=== PATIENT | female | born 1985 | race Two or more races ===

== ENCOUNTER 2024-02-24 11:12 | Inpatient (IN) | payer OTHER ==
[~2024-02-24] VITALS: Ht 167.6 cm; Wt 100.0 kg
[2024-02-24] MEDS ORDERED: ATEN-72 PO (11:52)
[2024-02-24 12:43] LABS: BASOPHILS % (AUTO) 0.5 % (0.0-2.0); EOSINOPHILS % (AUTO) 2.1 % (1.0-6.0); HEMOGLOBIN 13.3 g/dL (12.0-16.0); LYMPHOCYTES # (AUTO) 2.2 K/uL (1.0-4.8); LYMPHOCYTES % (AUTO) 21.1 % (22.0-44.0); MEAN CORPUSCULAR HEMOGLOBIN 29.3 pg (26.0-34.0); MEAN CORPUSCULAR HGB CONC 33.3 G/dL (31.0-37.0); MEAN CORPUSCULAR VOLUME 88 fL (80-100); MONOCYTES # (AUTO) 0.7 K/uL (0.1-1.0); MONOCYTES % (AUTO) 6.8 % (2.0-9.0); NEUTROPHILS # (AUTO) 7.2 K/uL (1.8-7.7); NEUTROPHILS % (AUTO) 69.5 % (40.0-70.0); PLATELET COUNT (AUTO) 315 K/uL (150-450); RED BLOOD CELL COUNT(AUTO) 4.54 MIL/uL (4.00-5.20); WHITE BLOOD COUNT (AUTO) 10.4 K/uL (4.5-11.0)
[2024-02-24 12:49] LABS: ANION GAP 9 mmol/L (8-16); CALCIUM, TOTAL 8.8 mg/dL (8.8-10.5); CARBON DIOXIDE 27 mmol/L (22-29); CHLORIDE 104 mmol/L (98-107); CREATININE 0.84 mg/dL (0.60-1.30); GLOMERULAR FILTR. RATE CALC > 60 mL/min (>60); GLUCOSE,RANDOM 91 mg/dL (70-110); POTASSIUM 4.1 mmol/L (3.5-5.1); SODIUM SERUM 140 mmol/L (136-145); UREA NITROGEN, BLOOD 20 mg/dL (7-18)
[2024-02-24 12:55] LABS: ALANINE AMINOTRANSFERASE 30 U/L (12-78); ALBUMIN 3.3 g/dL (3.4-5.0); ALKALINE PHOSPHATASE 69 U/L (46-116); ASPARTATE AMINOTRANSFERASE 17 U/L (15-37); BILIRUBIN,TOTAL 0.4 mg/dL (0.1-1.0); TOTAL PROTEIN, SERUM 7.8 g/dL (6.4-8.2)
[2024-02-24 13:56] LABS: COVID AG,FIA SOURCE NASAL SWAB
[2024-02-24 13:59] LABS: APPEARANCE,URINE HAZY (CLEAR); BILIRUBIN,URINE NEGATIVE (NEGATIVE); COLOR,URINE YELLOW (YELLOW); GLUCOSE, URINE (UA) NEGATIVE (NEGATIVE); KETONES,URINE NEGATIVE (NEGATIVE); LEUKOCYTE ESTERASE ,URINE TRACE (NEGATIVE); NITRATE,URINE NEGATIVE (NEGATIVE); OCCULT BLOOD,URINE NEGATIVE (NEGATIVE); PH,URINE 5.5 (5.0-8.0); PROTEIN,URINE 30-70 mg/dL (NEGATIVE); SPECIFIC GRAVITIY, URINE 1.031 (1.003-1.030); UROBILINOGEN,URINE <=1.0 mg/dL (<=1.0)
[2024-02-24 14:11] LABS: BACTERIA,URINE Few /HPF (None Seen); RBC,URINE None Seen /HPF (0-2); SQUAMOUS EPITHELIAL CELL,UR Many /LPF (None Seen)
[2024-02-24 14:19] LABS: SARS-COV2 (COVID) ANTIGEN,FIA Negative (Negative)
[2024-02-24] MEDS ORDERED: MAGNESIUM HYDROXIDE SUSPENSION 30 ML UDCUP PO PRN (14:45)
[2024-02-24] MEDS ORDERED: ONDANSETRON HCL 4 MG/2 ML VIAL IVP PRN (14:45)
[2024-02-24 16:03] VITALS: BP 103/63; PULSE 63; RESP 20; TEMP 98.5
[2024-02-24 19:52] VITALS: BP 111/58; PULSE 74; RESP 19; TEMP 97.6
[2024-02-24] MEDS: ACETAMINOPHEN 325 MG TABLET PO PRN (21:16)
[2024-02-25 00:25] VITALS: BP 112/76; PULSE 61; RESP 20; TEMP 98
[2024-02-25 04:50] VITALS: BP 123/82; PULSE 65; RESP 20; TEMP 97.9
[2024-02-25 08:06] LABS: HIV 1-2 SCREEN 4TH GEN W/RFLX Non Reactive (Non Reactive)
[2024-02-25 08:58] VITALS: BP 125/73; PULSE 74; RESP 18; TEMP 97.6
[2024-02-25] MEDS: FAMOTIDINE 20 MG TABLET PO SCH (08:58)
[2024-02-25 20:19] VITALS: BP 111/64; PULSE 69; RESP 18; TEMP 98.2
[2024-02-25 23:56] VITALS: BP 135/89; PULSE 75; RESP 19; TEMP 97.6
[2024-02-26 03:52] VITALS: BP 121/88; PULSE 73; RESP 19; TEMP 97.7
[2024-02-26 07:52] VITALS: BP 126/70; PULSE 76; RESP 18; TEMP 98.1
[2024-02-26 13:53] LABS: MTB PCR w/Rif. Resistance-SPUT NOT DETECTED (Not Detectd)
[2024-02-26 13:53] LABS: MTB PCR w/Rif. Resistance-SPUT NOT DETECTED (Not Detectd)
[2024-02-26 16:00] VITALS: BP 117/86; PULSE 68; RESP 20; TEMP 97.5
[2024-02-26 20:35] VITALS: BP 141/99; PULSE 68; RESP 20; TEMP 98
[2024-02-27] VITALS (9 sets, daily range): BP systolic 116–145; BP diastolic 66–93; PULSE 64–84; RESP 18–20; TEMP 97.4–98.3
[2024-02-28 04:59] VITALS: BP 129/72; PULSE 72; RESP 18; TEMP 97.7
[2024-02-28 08:40] VITALS: BP 122/56; PULSE 70; RESP 19; TEMP 98
[2024-02-28 10:06] LABS: QUANTIFERON+,Mitogen Value >10.00 IU/mL; QUANTIFERON+,TB2 Antigen Value 0.01 IU/mL; QUANTIFERON, TB GOLD PLUS Negative (Negative)
[2024-02-28 13:07] LABS: QUANTIFERON+,Mitogen Value >10.00 IU/mL; QUANTIFERON+,TB1 Antigen Value 0.01 IU/mL; QUANTIFERON+,TB2 Antigen Value 0.01 IU/mL; QUANTIFERON, TB GOLD PLUS Negative (Negative)
[2024-02-28] MEDS ORDERED: ACET-2247 PO (16:03)
[2024-02-28 20:00] VITALS: BP 124/68; PULSE 74; RESP 18; TEMP 98.3
== END 2024-02-28 21:25 | DRG 951 ==
LOC: EMS 11:12 → 5N 15:06 → 6S 02-27 17:32
PROVIDERS: ADMIT Internal Medicine; ATTEND Internal Medicine
DX: Z03.89 Encounter for observation for other suspected diseases and conditions ruled out (principal); E66.9 Obesity, unspecified; Z68.35 Body mass index [BMI] 35.0-35.9, adult; Z78.9 Other specified health status; Z20.822 Contact with and (suspected) exposure to COVID-19
CPT/HCPCS: 71046; 71250; 80053; 81001; 84703; 85025; 86480; 87015; 87040; 87206; 87389; 87556; 94640; 99285; 36415-L1; 36415-TC